=== PATIENT | female | born 1950 | race Caucasian/White ===

== ENCOUNTER 2018-09-01 10:21 | Inpatient (IN) | payer MEDICARE ==
--- NOTE | 2018-09-01 10:40 | ED ---
Abdominal Pain/Female - HPI Summary HPI Summary: This patient is a 68 year old F presenting to [facility] accompanied by her with a chief complaint of intermittent ABD cramping and nausea that began yesterday and got worse last night. The patient rates the pain 2/10 in severity. Symptoms alleviated by lying down. Patient reports vomiting and ABD bloating. Patient denies diarrhea, constipation, fever, CP, SOB, and drug/etoh use. Hx cholecystitis. Pt still has her appendix. She is currently not having any sx. She does not desire pain medication at this time. - History of Current Complaint Chief Complaint: EDAbdPain Stated Complaint: ABD PAIN Time Seen by Provider: 09/01/18 10:36 Hx Obtained From: Patient Onset/Duration: Still Present Timing: Constant Severity Initially: Moderate Severity Currently: Moderate Pain Intensity: 0 Pain Scale Used: 0-10 Numeric Location: Diffuse Alleviating Factor(s): Other: - lying down Associated Signs and Symptoms: Positive: Nausea, Vomiting. Negative: Diarrhea Allergies/Adverse Reactions: Allergies Allergy/AdvReac Type Severity Reaction Status Date / Time No Known Allergies Allergy Verified 09/01/18 10:32 PMH/Surg Hx/FS Hx/Imm Hx Endocrine/Hematology History: Reports: Hx Thyroid Disease Cardiovascular History: Reports: Hx Hypercholesterolemia Respiratory History: Denies: Hx Chronic Obstructive Pulmonary Disease (COPD) Sensory History: Reports: Hx Contacts or Glasses Opthamlomology History: Reports: Hx Contacts or Glasses - Cancer History Hx Chemotherapy: No Hx Radiation Therapy: No - Surgical History Surgery Procedure, Year, and Place: Cholecystectomy Infectious Disease History: No Infectious Disease History: Denies: Traveled Outside the [place] in Last 30 Days - Family History Known Family History: Positive: Hypertension - Social History Lives: With Family Alcohol Use: None Hx Substance Use: No Substance Use Type: Reports: None Hx Tobacco Use: No Smoking Status (MU): Never Smoked Tobacco Review of Systems Negative: Fever Negative: Chest Pain Negative: Shortness Of Breath Gastrointestinal: Negative - constipation Positive: Abdominal Pain, Vomiting, Nausea. Negative: Diarrhea All Other Systems Reviewed And Are Negative: Yes Physical Exam - Summary Physical Exam Summary: Appearance: Well appearing, no pain distress Skin: warm, dry, reflects adequate perfusion Head/face: normal Eyes: EOMI, ARTURO ENT: normal Neck: supple, non-tender Respiratory: CTA, breath sounds present Cardiovascular: RRR, pulses symmetrical Abdomen: diffuse abd tenderness Musculoskeletal: normal, strength/ROM intact Neuro: normal, sensory motor intact, A&Ox3 Triage Information Reviewed: Yes Vital Signs On Initial Exam: Initial Vitals Temp Pulse Resp BP Pulse Ox 97.4 F 88 16 116/99 98 09/01/18 10:29 09/01/18 10:29 09/01/18 10:29 09/01/18 10:29 09/01/18 10:29 Vital Signs Reviewed: Yes Diagnostics - Vital Signs Vital Signs Temp Pulse Resp BP Pulse Ox 09/01/18 10:29 97.4 F 88 16 116/99 98 - Laboratory Result Diagrams: 09/01/18 10:50 09/01/18 10:50 Lab Statement: Any lab studies that have been ordered have been reviewed, and results considered in the medical decision making process. - CT CT ABD Pelvis CT Interpretation Completed By: Radiologist Summary of CT Findings: CT of the abdomen and pelvis demonstrates high-grade small bowel obstruction. A zone of transition is noted in the distal ileum. This is approximately 7 cm proximal to. the ileocecal valve. Small bowel diverticula are noted. The possibility of a a small bowel. diverticulitis should be considered. Alternatively I cannot exclude a mass in this region. although no obvious masses identified. Hepatic steatosis. ED physician has reviewed this radiology report. - EKG 1114 Cardiac Rate: NL EKG Rhythm: Sinus Rhythm - at 66 BPM Summary of EKG Findings: NO acute changes Re-Evaluation - Re-Evaluation First Eval Re-Evaluation Time: 12:00 Change: Worse Comment: Pt vomited all her contrast up. Abdominal Pain Fem Course/Dx - Course Course Of Treatment: This patient is a 68 year old F presenting to [facility] accompanied by her with a chief complaint of intermittent ABD cramping and nausea that began yesterday and got worse last night. An EKG reveals NSR. CT ABD/Pelvis reveals, per radiologist, CT of the abdomen and pelvis demonstrates high-grade small bowel obstruction. A zone of transition is noted in the distal ileum. This is approximately 7 cm proximal to. the ileocecal valve. Small bowel diverticula are noted. The possibility of a a small bowel. diverticulitis should be considered. Alternatively I cannot exclude a mass in this region. although no obvious masses identified. Hepatic steatosis. . Bloodwork obtained. In the ED course the patient was given zosyn, Ativan, and Zofran. We discussed patient care with Dr. Bedolla and they recommended will come see the patient. After seeing the patient and reviewing her case he has agreed to admit the patient. Patient will be admitted. The patient is agreeable with this plan. - Diagnoses Provider Diagnoses: SBO (small bowel obstruction), Abdominal pain - Provider Notifications Discussed Care Of Patient With: Ha Bedolla Time Discussed With Above Provider: 13:41 Instructed by Provider To: Other - Dr. Bedolla is currently in surgery and will contact me when he is free. 1400 He has agreed to come see the patient. 1505 Dr. Bedolla is at bedside. After seeing the patient he has agreed to admit her. - Critical Care Time Critical Care Time: 30-74 min Discharge - Sign-Out/Discharge Documenting (check all that apply): Patient Departure - admitted - Discharge Plan Condition: Fair Disposition: ADMITTED TO [facility] Referrals: David Weinberg MD [Primary Care Provider] - - Attestation Statements Document Initiated by Scribe: Yes Documenting Scribe: Junito Ceron Provider For Whom Toñoibe is Documenting (Include Credential): Talha Foreman MD Scribe Attestation: IJunito , scribed for Talha Foreman MD on 09/01/18 at 1532.
[2018-09-01] MEDS ORDERED: NS 0.9% 1000 ML* 1,000 ML IV ONE (10:45)
[2018-09-01 11:03] LABS: ABS Basophils 0 10^3/ul (0-0.2); ABS Eosinophils 0 10^3/ul (0-0.6); ABS Lymphocytes 0.6 10^3/ul (1.0-4.8); ABS Monocytes 0.6 10^3/ul (0-0.8); ABS Neutrophils 12.5 10^3/ul (1.5-7.7); ABS Nucleated RBC 0 10^3/ul; Eosinophil % 0.2 % (0-6); Hematocrit 50 % (35-47); Hemoglobin 16.7 g/dl (12.0-16.0); Lymphocyte % 4.1 % (25-47); Mean Corpuscular HGB Conc 34 g/dl (31-36); Mean Corpuscular Hemoglobin 30 pg (27-31); Mean Corpuscular Volume 88 fL (80-97); Mean Platelet Volume 8.3 fL (7.4-10.4); Nucleated Red Blood Cells % 0; Platelet Count 237 10^3/ul (150-450); Red Blood Count 5.64 10^6/ul (4.00-5.40); Red Cell Distribution Width 13 % (10.5-15); White Blood Count 13.7 10^3/ul (3.5-10.8)
[2018-09-01 11:12] LABS: INR 0.97 (0.77-1.02)
[2018-09-01 11:20] LABS: EGFR Non-African American 51.9 (>60)
[2018-09-01] MEDS ORDERED: Ondansetron INJ* 2 MG/ML VIAL ONE (12:03)
[2018-09-01] MEDS ORDERED: Ondansetron INJ* 2 MG/ML VIAL IV ONE (12:05)
[2018-09-01] MEDS ORDERED: Iodixanol* (CONTRAST) 320 MG/ML 100 ML SDV IV ONE (12:32)
[2018-09-01] MEDS ORDERED: Piperacillin/Tazobac ADVAN(*) 3.375 GM in NS 0.9% 100 ML* 100 ML IVPB ONE (13:43)
[2018-09-01] MEDS ORDERED: Piperacillin/Tazobac (*) 3.375 GM BAG ONE (13:59)
[2018-09-01] MEDS ORDERED: LORazepam INJ* 2 MG/ML 1 ML VIAL ONE (15:05)
[2018-09-01] MEDS ORDERED: LORazepam INJ* 2 MG/ML 1 ML VIAL IV PUSH ONE (15:13)
[2018-09-01] MEDS ORDERED: HYDROmorphone INJ* 0.5 MG/0.5 ML SYRINGE IV PRN (15:16)
--- NOTE | 2018-09-01 16:15 | HP ---
CC: Dr. David Weinberg * HISTORY AND PHYSICAL: DATE OF ADMISSION: 09/01/18 LOCATION: The patient was seen in the emergency room on 09/01/18. HISTORY OF PRESENT ILLNESS: I was contacted by the emergency room to evaluate Ms. Milligan, a 68-year-old female who presented with 2-day history of persistent nausea and vomiting, whose workup included a CT scan suggestive of small bowel obstruction with transition zone. The patient was otherwise in her normal state of health when she started experiencing crampy abdominal pain with significant nausea and vomiting. She did have decreased flatus. Her last bowel movement was loose and was this morning. She denied any previous similar symptoms. Pain is tolerable. The vomiting has become difficult for her. The patient had an NG tube placed in the ER with approximately 100 cc output. She had vomited between the time of CT scan and the NG tube placement, which was approximately 400 cc according to the ER nurse. Currently, the patient's chief complaint is the NG tube which is bothering her significantly. PAST MEDICAL HISTORY: Hypothyroidism. PAST SURGICAL HISTORY: Laparoscopic appendectomy. MEDICATIONS: Medication list reviewed. ALLERGIES: No known drug allergies. FAMILY HISTORY: Noncontributory. No history of ulcerative colitis or Crohn disease or colon cancers. SOCIAL HISTORY: Nonsmoker. Lives with family. REVIEW OF SYSTEMS: No significant weight loss or weight gain. No fevers or chills. Nausea and vomiting as described. No shortness of breath, no chest pain. Abdominal complaints as described. No dysuria. No change in bowel habits. Last colonoscopy a year ago was within normal limits and was the patient's second colonoscopy overall. No bleeding or clotting disorders. No endocrine disorders. No neurologic disorders. PHYSICAL EXAMINATION GENERAL: Alert and oriented x3, in no apparent distress. VITAL SIGNS: She is afebrile. Vital signs are stable. HEENT: Normocephalic, atraumatic. Sclerae are anicteric. Mucous membranes are dry. NG tube in place with scant output. NECK: No lymphadenopathy. LUNGS: Clear to auscultation bilaterally with coarse sounds on the right side. ABDOMEN: Soft, distended, and nontender. Hyperactive bowel sounds that are high pitched in the left side. No hernias or masses noted. Well-healed surgical incisions. EXTREMITIES: Within normal limits. RECTAL: Exam with no masses. Stool in the vault that is nonbloody. Guaiac of this is pending. DIAGNOSTIC STUDIES/LAB DATA: Labs reviewed show an elevated white blood cell count of 13.7 with left shift. The patient also has a hemoglobin of , which is elevated. Chemistry panel reviewed and shows a creatinine of 1.06. This is elevated, but we have no previous numbers within our system. Troponin is 0. Lactic acid 1.7. The patient underwent a CAT scan of the abdomen and pelvis. These images were reviewed as well as the report. It shows diverticulum in the distal ileum approximately 7 cm from the cecum. There are some inflammatory changes at this site and a concern for decompressed bowel beyond it. IMPRESSION AND PLAN: Small bowel obstruction. Differential is small bowel diverticular disease or diverticulitis. My concern is that the patient may have a small bowel lesion that would require excision. I would like to admit her to the hospital. IV fluids, n.p.o. status, NG tube drainage, abdominal x- ray in the morning with a strong possibility of taking to the operating room for diagnostic laparoscopy. I outlined this to the patient. She understands the plan. Her questions were answered. [id number]/[facility] #: [id number] NITHIN
[2018-09-01] MEDS ORDERED: HYDROmorphone INJ1* 1 MG/ML SYRINGE ONE (17:22)
[2018-09-01] MEDS: HYDROmorphone INJ1* 1 MG/ML SYRINGE IV PRN ×2 (17:26→22:44)
[2018-09-01] MEDS: Benzocaine/Butamben/Tetracain (CETACAINE - SINGLE USE) 5 gm TOPICAL SCH (18:30)
[2018-09-01] MEDS: Heparin VIAL(*) 5000 UNITS/ML VIAL (FIVE THOUSAND) SUBCUT SCH (22:40)
[2018-09-01 23:16] LABS: Urine Appearance Cloudy; Urine Blood Negative (Negative); Urine Color Yellow; Urine Ketones Trace (Negative); Urine Protein 1+(30 mg/dL) (Negative); Urine Red Blood Cell 3+(>10/hpf) (Absent); Urine Specific Gravity > 1.060 (1.010-1.030); Urine Urobilinogen Negative (Negative); Urine White Blood Cell 2+(11-20/hpf) (Absent)
[2018-09-02] MEDS: Benzocaine/Butamben/Tetracain (CETACAINE - SINGLE USE) 5 gm TOPICAL SCH ×4 (00:36→18:08)
[2018-09-02 05:34] LABS: ABS Basophils 0 10^3/ul (0-0.2); ABS Eosinophils 0 10^3/ul (0-0.6); ABS Lymphocytes 0.8 10^3/ul (1.0-4.8); ABS Monocytes 1.1 10^3/ul (0-0.8); ABS Neutrophils 12.3 10^3/ul (1.5-7.7); ABS Nucleated RBC 0 10^3/ul; Eosinophil % 0.1 % (0-6); Hematocrit 44 % (35-47); Hemoglobin 14.3 g/dl (12.0-16.0); Lymphocyte % 5.4 % (25-47); Mean Corpuscular HGB Conc 33 g/dl (31-36); Mean Corpuscular Hemoglobin 29 pg (27-31); Mean Corpuscular Volume 89 fL (80-97); Mean Platelet Volume 8.9 fL (7.4-10.4); Nucleated Red Blood Cells % 0.1; Platelet Count 207 10^3/ul (150-450); Red Cell Distribution Width 14 % (10.5-15); White Blood Count 14.2 10^3/ul (3.5-10.8)
[2018-09-02 05:49] LABS: EGFR Non-African American 73.9 (>60)
[2018-09-02] MEDS: Heparin VIAL(*) 5000 UNITS/ML VIAL (FIVE THOUSAND) SUBCUT SCH ×3 (06:10→21:44)
[2018-09-02] MEDS: Levothyroxine INJ* 100 MCG/5 ML VIAL IV SCH (06:10)
--- NOTE | 2018-09-02 11:53 | PN ---
Progress Note - Progress Note Date of Service: 09/02/18 SOAP: Subjective: Patient seen and examined. No change from yesterday. She denies abdominal pain. She denies any flatus. NG tube is more tolerable. Objective: Temp Pulse Resp BP Pulse Ox 97.8 F 71 16 125/52 100 09/02/18 07:24 09/02/18 07:24 09/02/18 07:39 09/02/18 07:24 09/02/18 07:24 Intake & Output 09/01/18 09/02/18 09/02/18 22:59 06:59 14:59 Intake Total 0 980 1005 Output Total 600 100 750 Balance -600 880 255 Weight 162 lb NG tube output approximately 450 cc alert and oriented 3, no apparent distress. Abdomen: Soft, mild distention, nontender. Positive bowel sounds that are not high-pitched Assessment: small bowel obstruction that is persistent. Small bowel lesions consistent with diverticula. bleed patient will likely require a diagnostic laparoscopy and possibly small bowel resection possible ileal cecectomy. I discussed this with the patient. she may resolve with nonoperative intervention and we will consider holding off for another day. If she does resolve she still will require a colonoscopy that will include cannulation of the distal small bowel. Plan: Nothing by mouth, NG tube. Likely will require operation. Diagnostic laparoscopy possible bowel resection. Tentatively scheduled for Sunday.
[2018-09-03] MEDS: Benzocaine/Butamben/Tetracain (CETACAINE - SINGLE USE) 5 gm TOPICAL SCH ×5 (00:15→23:42)
[2018-09-03] MEDS: Heparin VIAL(*) 5000 UNITS/ML VIAL (FIVE THOUSAND) SUBCUT SCH ×3 (05:44→22:04)
[2018-09-03] MEDS: Levothyroxine INJ* 100 MCG/5 ML VIAL IV SCH (05:45)
--- NOTE | 2018-09-03 11:50 | PN ---
Progress Note - Progress Note Date of Service: 09/03/18 Note: S: HD #3. Denies abd pain. Main c/o is NG tube. No N/V. No BM or flatus. Feels somewhat distended. O: Vital Signs - 8 hr 09/03/18 09/03/18 07:20 08:10 Temperature 98.0 F Pulse Rate 71 Respiratory 16 16 Rate Blood Pressure 136/55 (mmHg) O2 Sat by Pulse 98 Oximetry Intake and Output Last 24 Hours 09/01/18 09/02/18 09/03/18 09/04/18 06:59 06:59 06:59 06:59 Intake Total 980 1989 986 Output Total 700 2425 325 Balance 280 -435 661 Weight 162 lb Intake: IV Fluids 980 1989 986 LR 980 1989 986 Oral 0 0 Output: NG Tube Drainage Amount 350 1000 Urine 350 975 325 Washburn 450 Other: Date of Last Bowel t-2 Movement # Bowel Movements 0 Gen: NAD Heart: reg Lungs: clear Abd: mild distension; no tympany; hypoactive BS; soft; nontender to palp No labs or xrays today. A: SBO P: cont NG; IVF; to be seen by Dr. Bedolla; tentatively scheduled for OR 09/04.
[2018-09-04] MEDS: Benzocaine/Butamben/Tetracain (CETACAINE - SINGLE USE) 5 gm TOPICAL SCH ×4 (05:46→23:35)
[2018-09-04] MEDS: Levothyroxine INJ* 100 MCG/5 ML VIAL IV SCH (05:51)
[2018-09-04] MEDS: Heparin VIAL(*) 5000 UNITS/ML VIAL (FIVE THOUSAND) SUBCUT SCH ×3 (05:52→22:32)
[2018-09-04] MEDS ORDERED: Buffered Lidocaine 0.9% SYRIN* 5 ML/SYR SYRINGE INTRADERM ONE (06:00)
[2018-09-04] MEDS ORDERED: Famotidine IV* 10 MG/ML 2 ML (20 mg) IV ONE (10:00)
[2018-09-04] MEDS ORDERED: Buffered Lidocaine 0.9% SYRIN* 5 ML/SYR SYRINGE ONE (10:33)
[2018-09-04] MEDS ORDERED: Dexamethasone IV* 4 MG/ML 1 ML (4 MG) IV SLOW PU ONE (12:00)
[2018-09-04] MEDS ORDERED: Famotidine IV* 10 MG/ML 2 ML (20 mg) ONE (12:19)
[2018-09-04] MEDS ORDERED: Dexamethasone IV* 4 MG/ML 1 ML (4 MG) ONE (12:19)
[2018-09-04] MEDS ORDERED: Bupivacaine 0.25% EPI 200,000* 30 ML SDV ONE (14:30)
[2018-09-04] MEDS ORDERED: PROCHLORPERAZINE INJ 5 MG/ML 2 ML VIAL IV PRN (14:33)
[2018-09-04] MEDS ORDERED: Acetaminophen IV 1GM/100ML * 1,000 MG/100 ML VIAL IVPB ONE (14:33)
[2018-09-04] MEDS ORDERED: Naloxone* 0.4 MG/ML 1 ML VIAL IV PRN (14:33)
[2018-09-04] MEDS ORDERED: Sodium Citrate/Citric Acid* 15 ML UDC PO ONE (14:48)
[2018-09-04] MEDS ORDERED: Sodium Citrate/Citric Acid* 15 ML UDC ONE (14:52)
[2018-09-04] MEDS ORDERED: Succinylcholine* 20 MG/ML 10 ML VIAL ONE (14:53)
[2018-09-04] MEDS ORDERED: Propofol* 10 MG/ML 20 ML BTL ONE (14:53)
[2018-09-04] MEDS ORDERED: Lidocaine 2% PF * 5 ML VIAL ONE (14:53)
[2018-09-04] MEDS ORDERED: Midazolam* 1 MG/ML 2 ML VIAL (2 MG) ONE (14:53)
[2018-09-04] MEDS ORDERED: fentaNYL* 50 MCG/ML 2 ML VIAL (100 MCG VIAL) ONE ×5 (14:54→19:40)
[2018-09-04] MEDS ORDERED: Ertapenem* 1 GM in NS 0.9% 50 ML* 50 ML IVPB ONE (15:00)
[2018-09-04] MEDS ORDERED: EPHEDrine (Pressors)* 50 MG/ML VIAL ONE (15:32)
[2018-09-04] MEDS ORDERED: DiMENhydriNATE IV* 50 MG/ML VIAL ONE (17:10)
[2018-09-04] MEDS ORDERED: Ondansetron INJ* 2 MG/ML VIAL ONE (17:38)
[2018-09-04] MEDS ORDERED: Ketorolac INJ* 30 MG/ML 1 ML VIAL ONE (18:11)
--- NOTE | 2018-09-04 18:19 | OP ---
Operative Report - Blank - Operative Report Date of Operation: 09/04/18 Note: Brief Operative Note Preop Dx: SBO Postop Dx: same Procedure: Laparoscopy, SHAWNA, laparotomy, appendectomy Anesthesia: GET Surgeon: Chioma Wafer Fab Operator: Abdiel; TENNILLE Antonio; PAUL Grant Fluids: 1600 ml EBL: 200 ml Specimen: appendix Drains: none Findings: dictated
--- NOTE | 2018-09-04 18:38 | BRIEFOPN ---
Brief Operative Note - Surgery Procedures: Pre-OP Diagnoses: SBO, r/o sb mass Post-op Diagnosis: SBO Procedure: Diagnostic laparoscopy, SHAWNA, appendectomy Surgeon: Chioma Li: Marisela Doss Anethesia: WADE Bojorquez EBL: 200cc IVF: crystalloid Specimen: appendix Drains: none
[2018-09-04] MEDS ORDERED: Acetaminophen IV 1GM/100ML * 100 ML ONE (18:48)
[2018-09-04] MEDS: fentaNYL* 50 MCG/ML 2 ML VIAL (100 MCG VIAL) IV PRN ×2 (19:47→19:58)
[2018-09-04] MEDS ORDERED: PROCHLORPERAZINE INJ 5 MG/ML 2 ML VIAL ONE (19:48)
[2018-09-05 05:17] LABS: ABS Basophils 0 10^3/ul (0-0.2); ABS Eosinophils 0 10^3/ul (0-0.6); ABS Lymphocytes 0.9 10^3/ul (1.0-4.8); ABS Monocytes 0.7 10^3/ul (0-0.8); ABS Neutrophils 6.3 10^3/ul (1.5-7.7); ABS Nucleated RBC 0 10^3/ul; Eosinophil % 0.2 %; Hematocrit 37 % (35-47); Hemoglobin 12.6 g/dl (12.0-16.0); Lymphocyte % 11.2 %; Mean Corpuscular HGB Conc 34 g/dl (31-36); Mean Corpuscular Hemoglobin 30 pg (27-31); Mean Corpuscular Volume 88 fL (80-97); Mean Platelet Volume 8.1 fL (7.4-10.4); Nucleated Red Blood Cells % 0.1; Platelet Count 166 10^3/ul (150-450); Red Blood Count 4.24 10^6/ul (4.00-5.40); Red Cell Distribution Width 13 % (10.5-15); White Blood Count 7.9 10^3/ul (3.5-10.8)
[2018-09-05] MEDS: Levothyroxine INJ* 100 MCG/5 ML VIAL IV SCH (05:51)
[2018-09-05] MEDS: Heparin VIAL(*) 5000 UNITS/ML VIAL (FIVE THOUSAND) SUBCUT SCH ×3 (05:52→22:29)
[2018-09-05] MEDS: Ketorolac INJ* 30 MG/ML 1 ML VIAL IV PRN (05:58)
[2018-09-05] MEDS: Benzocaine/Butamben/Tetracain (CETACAINE - SINGLE USE) 5 gm TOPICAL SCH ×4 (05:59→23:54)
--- NOTE | 2018-09-05 11:20 | PN ---
Progress Note - Progress Note Date of Service: 09/05/18 SOAP: Subjective:pod#1 S/P DIAGNOSTIC LAP,SHAWNA,APPENDECTOMY no flatus,no nausea;hasn't ambulated yet [] Objective:Afeb;lungs:clear bilat;heart:RRR;abd:quiet,few bs;soft;incisions intact with steristrips and dressings,no erythema or drainage;appropriate tenderness;ext:SCDs on,nontender calves Vital Signs Temp 98.7 F 09/05/18 07:39 Pulse 78 09/05/18 07:39 Resp 16 09/05/18 08:00 BP 122/49 09/05/18 07:39 Pulse Ox 99 09/05/18 07:39 Intake & Output 09/04/18 09/05/18 09/05/18 18:59 06:59 18:59 Intake Total 1900 2948 Output Total 1775 2285 Balance 125 663 Intake: IV Fluids 1900 2948 LR 1900 2948 Oral 0 0 Output: NG Tube Drainage Amount 400 310 Urine 800 Morris 375 1975 Estimated Blood Loss 200 Other: # Bowel Movements 0 [] Assessment:stable POD#1 [] Plan:remove morris continue NG until GI function ambulate inspiron []
--- NOTE | 2018-09-05 12:49 | OP ---
CC: David Weinberg MD; [facility] OPERATIVE REPORT: DATE OF OPERATION: 09/04/18. DATE OF : 54. SURGEON: Ha Bedolla MD. COFFEE GRINDER: Dr. Alexis Winters and TENNILLE Hendrix. ANESTHESIOLOGIST: Dr. Bojorquez. ANESTHESIA: General anesthesia. PRE-OP DIAGNOSIS: Small-bowel obstruction, rule out small-bowel mass. POST-OP DIAGNOSES: Small-bowel obstruction. OPERATIVE PROCEDURE: INDICATIONS: Ms. Milligan is a 68-year-old female, who is admitted to my service with small-bowel obstr uction that showed no resolution. She was watched closely with NG- tube drainage and IV fluids. The re was concern on the CAT scan of the possibility of a small-bowel mass. For this reason, I recommen ded a diagnostic laparoscopy with the possibility of a small-bowel resection. The patient understood the risks of the procedure, as well as the potential benefits of resolution of small-bowel obstructi on and we spoke about the possible alternatives of watchful waiting and continued NG-tube drainage. The patient agreed to proceed with surgical intervention and signed consent. ESTIMATED BLOOD LOSS: 200 cc. IV FLUIDS: 1400 cc of crystalloid fluid. SPECIMENS: Appendix. DRAINS: None. DESCRIPTION OF PROCEDURE: She was taken to the operating room, placed on the operating table in the supine position. Preoperative antibiotics were given. Sequential devices were placed on bilateral lo wer extremities. General anesthesia was induced. A Washburn catheter was inserted. The patient's abdo men was prepped and draped in the standard surgical fashion and a time-out was performed. The folds of the umbilicus was elevated anteriorly and a Veress needle inserted into the abdominal ca vity, which was then allowed to insufflate to a pressure of 15 mmHg. The patient tolerated the insuf flation well. A supraumbilical incision was made and a 5 mm trocar was inserted through this. Lapar oscope was placed and review of the abdomen showed scant free fluid. Normal appearing colon and omen jong. Additional trocars were then placed in the following position: Two 5 mm, one in the suprapubic area and one in the left lower quadrant. The patient was repositioned to right side up Trendelenburg position. The transverse colon was ident ified. It was not clear if this was portion of the cecum as there was some unclarity to this site as we could not find the cecum easily. Next, we turned our attention to the small bowel. The mid ileum appeared within normal limits. We f ollowed this towards the right lower quadrant and noted it had significant scarring to fimbria as wel l as the lateral wall. This was taken down with sharp dissection and we kept gentle traction on the small bowel up and out of the right lower quadrant. This dissection was carried out to the sidewall. We periodically would stop and try to review where the ascending colon was and this proved somewhat difficult. We could follow the transverse colon down although this appeared significantly redundant and it was not clear if this just extended as a significant redundant transverse colon before headin g up towards the hepatic flexure. Continuing with both sharp and blunt dissection, we did get to an area that we finally saw the append ix after moving the small bowel out of the paracolic gutter on the right. With traction on the appen tamika, we continued with taking the attachments of the cecum off the lateral abdominal wall, staying in our dissection space which appeared to be somewhat lateral to the white line of Toldt at first. Next, we have returned our attention, now that we had seen the cecum, back to what at one point felt like possibility of the cecum. We found a dissection plane of thin tissue between the transverse col on and the ascending colon. This was taken with scissors and continued traction of the transverse co cresencio towards the right side. This allowed us to see the medial aspect of the cecum. At this point, w june saw the ileocecum. This led to additional dissection of the terminal ileum up and out of the area in the right lower quadrant. At this point, we could fully move both the terminal ileum and cecum al jennifer with the appendix through the midline with ease. We cleared out the whole lateral sidewall. The re had been some oozing, but this appeared to be slowing down and we turned our attention towards the terminal ileum. There were significant portions of adipose tissue around the antimesenteric portion s of the distal small bowel. I started to dissect some of this off, staying off the mesentery, but I could not be too sure and at this point made a decision to externalize this portion of the bowel to have a better idea of what we are dealing with and if there was indeed a small-bowel mass. We positioned the table back to neutral and increased the incision of the periumbilical incision supe riorly and deepened this down through all layers of the abdominal wall until we entered into the abdo men. We then brought the cecum along with the terminal ileum out of our incision site and reviewed w hat we had. Removing this did cause a rent in the small bowel mesentery. This was controlled with 3- 0 Vicryl stitches in a [id number] fashion. Next, dressing the small bowel, we took off portions of fatty tissue that was adherent to the antimes enteric area of the small bowel. We also lysed adhesions where there had been some folds in the smal l bowel. My concern was that there might be a diverticula within this site and we both sharply and b luntly dissected through the adipose deposits until we were on the wall of the bowel. At this point, we did not wee any diverticula. No acute inflammation or abscesses. The small bowel, although mild ly thickened, was otherwise free of any mass intraluminally or on the outside. The blood supply anup ined viable to the small bowel. We did have some oozing at one of the dissected areas of fat off the distal small bowel and I did imbricate this area to prevent bleeding rather than cauterize this. We used a 3-0 silk sutures taking care to place these in a portion that would not stricture the bowel. Next, we irrigated the mesentery and made sure we achieved hemostasis at that site. There was no sero shayy injuries to the areas of the small bowel or the large bowel. We then dropped it back into the abd omen. I did have to increase the size of the fascial opening as it was somewhat difficult in the sma ll bowel distally and then the small bowel became somewhat congested. Once this did drop back in we closed the fascial site with running 0 Vicryl sutures starting inferiorly and superiorly before tying them in the middle. We placed a 12 mm trocar into the abdomen, which was then allowed to insufflate to pressure of 50 mmHg. There was some leak around the balloon, but this gave us an opportunity to look back in. Review of the lateral sidewall side of the surgery and dissection showed one area of persistent oozin g. This was controlled with LigaSure device. We then irrigated the retroperitoneum and right paraco lic gutter and we saw no evidence of bleeding. There was some blood in the pelvis, which was suctione d out and a small amount of blood over the liver which was also suctioned out. It should also be noted that while the bowel was externalized, we did dissect the appendix which appe ared normal by taking the mesentery with LigaSure device and placing a 2-0 silk suture on the base of the appendix to a healthy tissue. We cauterized the mucosa and cut this off and passed off as speci men. The cecum was then dropped back into the appropriate positioning. Small bowel was run from the termi nal ileum making sure the orientation was correct without any twisting. The omentum was then brought up around the surgical site and draped over the anterior abdominal wall. We then looked around and again saw no evidence of bleeding. Trocar was removed under direct vision at the midline incision. We tied these 0-Vicryl sutures together, closed the fascia at this site, irrigated the wound and then reapproximated all incisions with skin chris. Sterile dressing was applied. The patient tolerate d the procedure well, was transferred to the PACU in stable condition. [id number]/[facility] #: [id number]
[2018-09-06 04:57] LABS: ABS Basophils 0 10^3/ul (0-0.2); ABS Eosinophils 0.1 10^3/ul (0-0.6); ABS Lymphocytes 0.8 10^3/ul (1.0-4.8); ABS Monocytes 0.6 10^3/ul (0-0.8); ABS Neutrophils 4.8 10^3/ul (1.5-7.7); ABS Nucleated RBC 0 10^3/ul; Eosinophil % 1.3 %; Hematocrit 34 % (35-47); Hemoglobin 11.2 g/dl (12.0-16.0); Lymphocyte % 13.1 %; Mean Corpuscular HGB Conc 33 g/dl (31-36); Mean Corpuscular Hemoglobin 30 pg (27-31); Mean Corpuscular Volume 89 fL (80-97); Mean Platelet Volume 8.6 fL (7.4-10.4); Nucleated Red Blood Cells % 0; Platelet Count 147 10^3/ul (150-450); Red Blood Count 3.81 10^6/ul (4.00-5.40); Red Cell Distribution Width 13 % (10.5-15); White Blood Count 6.3 10^3/ul (3.5-10.8)
[2018-09-06] MEDS: Benzocaine/Butamben/Tetracain (CETACAINE - SINGLE USE) 5 gm TOPICAL SCH ×4 (05:29→23:42)
[2018-09-06] MEDS: Levothyroxine INJ* 100 MCG/5 ML VIAL IV SCH (05:31)
[2018-09-06] MEDS: Heparin VIAL(*) 5000 UNITS/ML VIAL (FIVE THOUSAND) SUBCUT SCH ×3 (05:32→21:49)
[2018-09-06] MEDS: Ketorolac INJ* 30 MG/ML 1 ML VIAL IV PRN ×2 (05:35→20:05)
--- NOTE | 2018-09-06 12:52 | PN ---
Progress Note - Progress Note Date of Service: 09/06/18 SOAP: Subjective: Pt seen and examined. Feeling well. SOme flatus, no nausea, no appetite. Objective: Temp Pulse Resp BP Pulse Ox 98.2 F 80 16 126/54 95 09/06/18 07:17 09/06/18 07:17 09/06/18 07:35 09/06/18 07:17 09/06/18 07:17 Intake & Output 09/05/18 09/06/18 09/06/18 22:59 06:59 14:59 Intake Total 990 1989 Output Total 450 1150 Balance 540 840 NGT output up a and ox3, nad lungs clear abdo: soft/ ND/ NT dressing removed, no redness hypoactive BS labs noted Assessment: POD2 SHAWNA, ileus Plan: NGT for another night ivf gi, dvt prop
[2018-09-06] MEDS: D5W 1/2 NS KCl 20 Meq 1000 ML* 1,000 ML IV SCH (13:51)
[2018-09-07] MEDS: D5W 1/2 NS KCl 20 Meq 1000 ML* 1,000 ML IV SCH ×2 (02:24→15:01)
[2018-09-07] MEDS: Heparin VIAL(*) 5000 UNITS/ML VIAL (FIVE THOUSAND) SUBCUT SCH ×3 (05:36→21:42)
[2018-09-07] MEDS: Levothyroxine INJ* 100 MCG/5 ML VIAL IV SCH (05:37)
[2018-09-07] MEDS: Benzocaine/Butamben/Tetracain (CETACAINE - SINGLE USE) 5 gm TOPICAL SCH ×3 (05:59→19:10)
--- NOTE | 2018-09-07 09:05 | PN ---
Progress Note - Progress Note Date of Service: 09/07/18 SOAP: Subjective: Pt seen and examined. Feels well. No nausea, no flatus Objective: Temp Pulse Resp BP Pulse Ox 97.5 F 72 18 113/59 96 09/07/18 03:25 09/07/18 03:25 09/07/18 03:25 09/07/18 03:25 09/07/18 03:25 Intake & Output 09/06/18 09/07/18 09/07/18 22:59 06:59 14:59 Intake Total 0 1000 Output Total 1150 1550 Balance -1150 -550 a and o x3, nad lungs clear abdo: soft/ ND/ NT some BS, ext wnl Assessment: POD 3 lap SHAWNA, appy Plan: continue NGT pain control IVF GI dvt proph labs in am
[2018-09-08] MEDS: Benzocaine/Butamben/Tetracain (CETACAINE - SINGLE USE) 5 gm TOPICAL SCH ×4 (03:12→17:32)
[2018-09-08] MEDS: D5W 1/2 NS KCl 20 Meq 1000 ML* 1,000 ML IV SCH ×2 (03:45→15:44)
[2018-09-08] MEDS: Heparin VIAL(*) 5000 UNITS/ML VIAL (FIVE THOUSAND) SUBCUT SCH ×3 (05:51→21:18)
[2018-09-08] MEDS: Levothyroxine INJ* 100 MCG/5 ML VIAL IV SCH (05:54)
[2018-09-08 06:04] LABS: ABS Basophils 0 10^3/ul (0-0.2); ABS Eosinophils 0.3 10^3/ul (0-0.6); ABS Lymphocytes 1.2 10^3/ul (1.0-4.8); ABS Monocytes 0.6 10^3/ul (0-0.8); ABS Neutrophils 4.8 10^3/ul (1.5-7.7); ABS Nucleated RBC 0 10^3/ul; Eosinophil % 4.4 %; Hematocrit 37 % (35-47); Hemoglobin 12.4 g/dl (12.0-16.0); Lymphocyte % 17.2 %; Mean Corpuscular HGB Conc 33 g/dl (31-36); Mean Corpuscular Hemoglobin 29 pg (27-31); Mean Corpuscular Volume 89 fL (80-97); Mean Platelet Volume 8.8 fL (7.4-10.4); Nucleated Red Blood Cells % 0; Platelet Count 254 10^3/ul (150-450); Red Blood Count 4.21 10^6/ul (4.00-5.40); Red Cell Distribution Width 13 % (10.5-15); White Blood Count 6.9 10^3/ul (3.5-10.8)
[2018-09-08] MEDS ORDERED: Metoclopramide IV* 5 MG/ML 2 ML VIAL IV PRN (11:37)
--- NOTE | 2018-09-08 11:37 | PN ---
Progress Note - Progress Note Date of Service: 09/08/18 SOAP: Subjective: Pt seen and examined. She feels very well. some flatus, no BM Family overnight Objective: Temp Pulse Resp BP Pulse Ox 97.3 F 67 18 128/53 97 09/08/18 07:31 09/08/18 07:31 09/08/18 07:34 09/08/18 07:31 09/08/18 07:31 Intake & Output 09/07/18 09/08/18 09/08/18 22:59 06:59 14:59 Intake Total 1000 990 0 Output Total 1100 990 300 Balance -100 0 -300 NGT:600/500/740 last 3 shifts a and ox3, nad lungs clear abdo: soft/ ND/ NT hypoactive BS; no redness ext wnl Assessment: ileus s/p lap SHAWNA, appy Plan: NGT out, but will remain npo OOB GI dvt proph
[2018-09-09] MEDS: Benzocaine/Butamben/Tetracain (CETACAINE - SINGLE USE) 5 gm TOPICAL SCH ×4 (01:50→18:11)
[2018-09-09] MEDS: D5W 1/2 NS KCl 20 Meq 1000 ML* 1,000 ML IV SCH ×2 (04:01→16:47)
[2018-09-09] MEDS: Heparin VIAL(*) 5000 UNITS/ML VIAL (FIVE THOUSAND) SUBCUT SCH ×3 (06:13→22:06)
[2018-09-09] MEDS: Levothyroxine INJ* 100 MCG/5 ML VIAL IV SCH (06:13)
[2018-09-09] MEDS ORDERED: Ondansetron ODT TAB* 4 MG PO PRN (11:10)
--- NOTE | 2018-09-09 11:20 | PN ---
Progress Note - Progress Note Date of Service: 09/09/18 SOAP: Subjective:pod#8 s/p dx lap,stevo,appy []passing flatus and stool;no pain,no n/v;ambulating;expressed trying to stay positive despite her brother's recent Objective:lungs:clear bilat;heart:RRR Vital Signs Temp 97.6 F 09/09/18 08:46 Pulse 66 09/09/18 08:46 Resp 16 09/09/18 08:48 BP 132/78 09/09/18 08:46 Pulse Ox 98 09/09/18 08:46 Intake & Output 09/08/18 09/09/18 09/09/18 18:59 06:59 18:59 Intake Total 951 998 Output Total 1100 400 Balance -149 598 Intake: IV Fluids 951 998 D5W 1/2 NS 20 meq KCL 951 998 Oral 0 0 Output: NG Tube Drainage Amount 300 Urine 800 400 Other: Estimated Void Medium # Bowel Movements 1 Estimated Stool Amount Small # Voids 1 abd:+bs,soft,nondistended;incisions intact with chris,no infection;ext: nontender,mild edema r>l [] Assessment:GI function returning [] Plan:clear liquid diet;resume po antidepressant and levothyroxine;ambulate; emotional support offered []
[2018-09-09] MEDS: Sertraline* 50 MG TAB PO SCH (11:53)
--- NOTE | 2018-09-09 16:46 | PN ---
Progress Note - Progress Note Date of Service: 09/09/18 SOAP: Subjective: [This is 68-y-o female with history of S/P Diagnostic laparoscopy, SHAWNA, appendectomy. Started clears from today, tolerating well without nausea and vomitting. She is passing flatus and had 4 or 5 bowel movements today. Last bowel movement was 1 hour ago. Denies fever or chills, chest pain, SOB. No calf pain or tenderness. Ambulating around the unit several times a day. ] Objective: [ Temp Pulse Resp BP Pulse Ox 97.8 F 63 18 105/66 100 09/09/18 15:49 09/09/18 15:49 09/09/18 15:49 09/09/18 15:49 09/09/18 15:49 Intake & Output 09/09/18 09/09/18 09/09/18 06:59 14:59 22:59 Intake Total 998 200 Output Total 100 Balance 898 200 Intake: IV Fluids 998 D5W 1/2 NS 20 meq KCL 998 Oral 0 200 Output: Urine 100 Other: Estimated Void Medium Date of Last Bowel 09/09/18 Movement # Bowel Movements 1 3 Estimated Stool Amount Small Large # Voids 1 Benzocaine/Butamben/Tetracaine HCl (Cetacaine [place]* 2-2-14 %) 1 spray TOPICAL Q6HR [facility] Last Admin: 09/09/18 12:05 Dose: Not Given Heparin Sodium (Porcine) (Heparin Vial(*)) 5,000 units SUBCUT Q8HR [facility] Last Admin: 09/09/18 15:18 Dose: 5,000 units Potassium Chloride/Dextrose (D5w 1/2 Ns Kcl 20 Meq 1000 Ml*) 1,000 mls @ 80 mls /hr IV PER RATE [facility] Last Admin: 09/09/18 04:01 Dose: 80 mls/hr Ketorolac Tromethamine (Toradol Inj*) 30 mg IV Q6H PRN PRN Reason: PAIN Last Admin: 09/06/18 20:05 Dose: 30 mg Levothyroxine Sodium (Synthroid Tab*) 150 mcg PO DAILY@0600 [facility] Ondansetron HCl (Zofran Odt Tab*) 4 mg PO Q6H PRN PRN Reason: nausea Sertraline HCl (Zoloft*) 150 mg PO DAILY [facility] Last Admin: 09/09/18 11:53 Dose: 150 mg General: Alert and oriented, no signs of acute distress, resting comfortably in bed CV: Regular rate and rhythm, normal S1, S2. No murmurs, rubs or gallops Respiratory: Symmetric chest expansion and respiratory effort. Lungs CTA, no wheezes, rales or rohnchi Abdomen: Non-distended, non-tender, soft, positive bowel sounds, incision sites are clean, dry and intact without erythema, drainage or discharge Extremities: No edema or tenderness noted Assessment: [S/P POD# 8 Diagnostic laparoscopy, SHAWNA, appendectomy] Plan: [Clear liquid diet Encouraged incentive spirometry and ambulation]
[2018-09-10] MEDS: Benzocaine/Butamben/Tetracain (CETACAINE - SINGLE USE) 5 gm TOPICAL SCH ×3 (01:12→11:11)
[2018-09-10] MEDS: D5W 1/2 NS KCl 20 Meq 1000 ML* 1,000 ML IV SCH (05:25)
[2018-09-10] MEDS ORDERED: Levothyroxine TAB* 150 MCG TAB PO SCH (06:00)
[2018-09-10] MEDS: Heparin VIAL(*) 5000 UNITS/ML VIAL (FIVE THOUSAND) SUBCUT SCH (06:20)
[2018-09-10] MEDS: Sertraline* 50 MG TAB PO SCH (08:04)
--- NOTE | 2018-09-10 09:48 | PN ---
Progress Note - Progress Note Date of Service: 09/10/18 SOAP: Subjective: Pt seen and examined. Feeling very well. no nausea, no vomiting. positive flatus, pos loose BM Objective: Temp Pulse Resp BP Pulse Ox 97.5 F 69 16 141/68 100 09/10/18 07:30 09/10/18 07:30 09/10/18 07:30 09/10/18 07:30 09/10/18 07:30 a and o x3, nad lngs clear abdo: soft/ ND/ NT no redness ext wnl Assessment: POD 6 lap SHAWNA, Plan: advance diet possible d/c home later today vs tomorrow heplock GI, dvt proph
[2018-09-10 12:59] VITALS: BP 135/70
--- NOTE | 2018-09-10 13:09 | PN ---
Progress Note - Progress Note Date of Service: 09/10/18 SOAP: Subjective: This 68-y-o female with history of S/P Diagnostic laparoscopy, SHAWNA, appendectomy. She is feeling well, denies pain. She is tolerating clears well without nausea & vomiting. She is passing flatus and had a loose bowel movement this morning. She denies fever or chills, SOB, and chest pain. She ambulated five times around the unit since this morning. Objective: [ Temp Pulse Resp BP Pulse Ox 97.8 F 66 16 135/70 98 09/10/18 11:50 09/10/18 11:50 09/10/18 11:50 09/10/18 11:50 09/10/18 11:50 Intake & Output 09/09/18 09/10/18 09/10/18 22:59 06:59 14:59 Intake Total 360 990 Output Total 0 Balance 360 990 Intake: IV Fluids 990 D5W 1/2 NS 20 meq KCL 990 Oral 360 0 Output: Urine 0 Other: Estimated Void Large Small Date of Last Bowel 09/10/18 Movement # Bowel Movements 0 1 Estimated Stool Amount Medium # Voids 2 1 Benzocaine/Butamben/Tetracaine HCl (Cetacaine [place]* 2-2-14 %) 1 spray TOPICAL Q6HR [facility] Last Admin: 09/10/18 11:11 Dose: Not Given Heparin Sodium (Porcine) (Heparin Vial(*)) 5,000 units SUBCUT Q8HR [facility] Last Admin: 09/10/18 06:20 Dose: 5,000 units Levothyroxine Sodium (Synthroid Tab*) 150 mcg PO DAILY@0600 [facility] Last Admin: 09/10/18 06:20 Dose: 150 mcg Ondansetron HCl (Zofran Odt Tab*) 4 mg PO Q6H PRN PRN Reason: nausea Sertraline HCl (Zoloft*) 150 mg PO DAILY [facility] Last Admin: 09/10/18 08:04 Dose: 150 mg General: Alert and oriented, no signs of acute distress, resting comfortably in bed CV: Regular rate and rhythm, normal S1, S2, no murmurs, rubs or gallops Respiratory: Symmetric chest expansion and respiratory effort. Lungs CTA, no wheezes, rales or rohnchi Abdomen: Non-distended, non-tender, soft, positive bowel sounds, incision sites C/D/I without erythema, drainage or discharge Extremities: No edema or tenderness noted Assessment: POD# 6 S/P Diagnostic laparoscopy, SHAWNA, appendectomy Plan: As per Dr. Bedolla note Adv Diet Encouraged ambulation and incentive spirometry
--- NOTE | 2018-09-10 15:47 | DS ---
CC: Dr. David Weinberg * DATE OF ADMISSION: 09/01/2018. DATE OF DISCHARGE: 09/10/2018. ATTENDING PHYSICIAN: Dr. Ha Bedolla * (TENNILLE Hendrix dictating). HOSPITAL COURSE: Please refer to admission history and physical and operative note for details. The patient was admitted with a small bowel obstruction. She was treated with NG tube decompression, bowel rest, and hydration. However , her obstruction did not resolve clinically or by follow-up plain films. She was taken to the OR on September [address] Bedolla and underwent laparoscopy with lysis of adhesions and mini laparotomy with appendectomy. No bowel resection was performed. Other than adhesions, there were no palpable lesions within the terminal ileus. The patient did have a period of postoperative ileus which was treated with ongoing NG tube decompression. Beginning around postoperative day five, she was passing flatus and stool. NG tube was discontinued and she was started on clear liquids which she has since tolerated well. As of the day of discharge, she is tolerating full liquids well without any abdominal pain, nausea, or vomiting. She was seen by Dr. Bedolla this morning (see separate note) and is deemed ready for discharge. Instructions were reviewed regarding diet, wound care, and activity. She has a follow-up with our office on 09/16/2018. She will resume her usual home medications. She is not requiring any additional analgesics at present. IMPRESSION: Small bowel obstruction secondary to adhesions and complicated by postoperative ileus; doing well and ready for discharge. PLAN: Home today with follow-up as indicated. TENNILLE HENDRIX [id number]/[facility] #: [id number] MTDD
--- NOTE | 2018-09-11 09:38 | DS ---
CC: David Weinberg MD * DISCHARGE SUMMARY: DATE OF ADMISSION: 09/01/18 DATE OF DISCHARGE: 09/10/18 HISTORY OF PRESENT ILLNESS: Ms. Milligan is a 68-year-old female who presented to the emergency room and was admitted to my service with small bowel obstruction. The patient underwent a workup, which included CT scan and labs and I was concerned about the possibility of a small bowel lesion. The patient was observed with NG tube status and IV fluids. She did not show any significant improvement and by hospital day 3, she was taken to the operating room for diagnostic laparoscopy, mini laparotomy and lysis of adhesions. Please see separate operative report for details. In the postoperative period, the patient was transferred back to the short-stay surgical unit where she was watched, maintained on NG tube output. No antibiotics, was given IV fluids and pain control. She improved very slowly with a resolving ileus by postoperative day 4 and her NG tube was removed. By postoperative day 5, we started her on a clear diet and advanced this to full liquids. On postop day 6, she was passing flatus and overall doing well. Physical exam was done on the day of discharge, which is postoperative day 6 from her mini laparotomy. She was doing well, having no nausea, no abdominal pain. She was passing flatus and loose bowel movements. She was afebrile. Vital signs were stable. Alert and oriented x3. Abdomen was soft, nondistended , nontender. Skin: Chris intact with no redness. Extremities within normal limits. IMPRESSION: Status post laparoscopic lysis of adhesions and appendectomy, hemodynamically stable and with resolving ileus. I would like the patient to continue with full liquids at home and then advance this to a solid diet tomorrow. The patient did have the bad news of her brother passing away while she has been hospitalized and she wishes to get down there to help out at the and this is the reason we send her home today versus tomorrow. The patient understands this plan. She understands that she can contact emergency room or our office should there be any problems. Currently she is doing well and will follow up in our office on Sunday and take out her chris. [id number]/[facility] #: [id number] MTDD
== END 2018-09-10 16:00 | disposition home or self-care (01) | DRG 336 ==
LOC: ED 10:21 → SSU 15:16
PROVIDERS: ADMIT Surgery; ATTEND Surgery
PROC: 0DTJ0ZZ Resection of Appendix, Open Approach (ICD-10-PCS; 2018-09-04)
PROC: 0DJD4ZZ Inspection of Lower Intestinal Tract, Percutaneous Endoscopic Approach (ICD-10-PCS; 2018-09-04)
PROC: 0DN84ZZ Release Small Intestine, Percutaneous Endoscopic Approach (ICD-10-PCS; principal; 2018-09-04 12:30)
DX: K56.50 Intestinal adhesions [bands], unspecified as to partial versus complete obstruction (principal); K91.89 Other postprocedural complications and disorders of digestive system; K56.7 Ileus, unspecified; E03.9 Hypothyroidism, unspecified; Z82.49 Family history of ischemic heart disease and other diseases of the circulatory system
CPT/HCPCS: 36415; 74018; 74177; 80048; 80053; 81003; 81015; 82270; 83605; 83690; 83735; 84100; 84484; 85025; 85610; 85730; 86140; 87040; 87086; 88304; 93005; 99284; A9270-GY; J0330; J0780; J1100; J1170; J1240; J1335; J1644; J1885; J2060; J2250; J2405; J2543; J2704; J3010; Q9967